=== PATIENT | female | born 1940 | race Caucasian/White ===

== ENCOUNTER 2017-06-16 09:15 | Outpatient (CLI) | payer MEDICARE ==
--- NOTE | 2017-06-18 09:38 | Mammography Report ---
DATE OF SERVICE: 06/16/2017 DIGITAL SCREENING MAMMOGRAM: 06/16/2017 CLINICAL INDICATION: A 76-year-old with a family history of breast cancer, for screening. COMPARISON: 07/2015, 07/2014, 06/2013, 05/2013, 02/2012, 11/2010, 10/2009. TECHNIQUE: Routine CC and MLO projections were obtained of the breasts. FINDINGS: The breasts demonstrate scattered fibroglandular densities bilaterally. Punctate, typically benign calcifications are present. No suspicious masses, clustered microcalcifications, or regions of architectural distortion are identified. IMPRESSION: BENIGN FINDINGS. RECOMMENDATION: ROUTINE ANNUAL SCREENING UNLESS OTHERWISE CLINICALLY INDICATED. BIRADS CATEGORY 2-BENIGN FINDINGS. STANDARD QUALIFYING STATEMENTS: 1. This examination was reviewed with the aid of Computer-Aided Detection (CAD). 2. A negative or benign imaging report should not delay biopsy if clinically suspicious findings are present. Consider surgical consultation if warranted. More than 5% of cancers are not identified by imaging. 3. Dense breasts may obscure an underlying neoplasm. TD: 06/18/2017 10:37
== END 2017-06-16 09:16 | disposition home or self-care (01) ==
LOC: DI 09:15
PROVIDERS: ATTEND Family Medicine
DX: Z12.31 Encounter for screening mammogram for malignant neoplasm of breast (principal); Z80.3 Family history of malignant neoplasm of breast
CPT/HCPCS: 77067

== ENCOUNTER 2017-06-16 09:15 | Outpatient (CLI) | payer MEDICARE ==
--- NOTE | 2017-06-20 15:20 | DEXA Report ---
DEXA SCAN: 06/16/2017 CLINICAL INDICATION: Osteopenia. TECHNIQUE: Dual energy x-ray absorptiometry (DXA) was performed on a [employer] system. Regions measured are the AP spine, femoral neck, and, if needed, forearm. COMPARISON: None. In accordance with the International Society for Clinical Densitometry (ISCD) guidelines, data from previous exams may be reanalyzed using current recommendations and techniques. This is done to allow a more accurate basis for comparison with the current study. FINDINGS The data for the lumbar spine is as follows: REGION BMD (g/cm/cm) T-SCORE Z-SCORE L1 1.252 1.0 2.3 L2 1.264 0.5 1.8 L3 1.399 1.7 2.9 L4 1.391 1.6 2.9 L1-L4 1.338 1.3 2.6 NOTE: All evaluable vertebrae are used for classification. The data for the hip is as follows: REGION BMD (g/cm/cm) T-SCORE Z-SCORE Neck 0.821 -1.6 0.0 TOTAL 0.928 -0.6 0.8 NOTE: The femoral neck or total proximal femur, whichever is lowest, is used for classification. IMPRESSION THE WHO CLASSIFICATION BASED ON THE INTERNATIONAL REFERENCE STANDARD IS OSTEOPENIA (REFERENCE LEFT FEMORAL NECK). THE FRACTURE RISK IS INCREASED. RECOMMENDATION: Patients with diagnosis of osteoporosis or osteopenia should have regular bone mineral density assessment. For those eligible for Medicare, routine testing is allowed once every 2 years. Testing frequency can be increased for patients who have rapidly progressing disease or for those who are receiving medical therapy to restore bone mass. COMMENT: World Health Organization (WHO) definitions for osteoporosis and osteopenia: NORMAL BMD: T-score at 1.0 or higher, fracture risk is low. OSTEOPENIA BMD: T-score between 1.0 and -2.5, fracture risk is increased. OSTEOPOROSIS BMD: T-score at 2.5 or lower, fracture risk high. National Osteoporosis Foundation recommends: 1. Obtain adequate dietary calcium (at least 1200 mg per day) and vitamin D (400 -800 international units per day). 2. Participate, as appropriate, in regular weightbearing and muscle- strengthening exercise. 3. Avoid tobacco use and reduce alcohol and caffeine intake. 4. For more detailed information see the website at www.NOF.org. TD: 06/16/2017 11:51 MTDD
== END 2017-06-16 09:16 | disposition home or self-care (01) ==
LOC: DI 09:15
PROVIDERS: ATTEND Family Medicine
DX: M85.88 Other specified disorders of bone density and structure, other site (principal)
CPT/HCPCS: 77080

== ENCOUNTER 2017-09-07 08:00 | Outpatient (CLI) | payer MEDICARE | END 2017-09-07 23:59 | disposition home or self-care (01) | LOC: LAB.R 08:00 | PROVIDERS: ATTEND Family Medicine | DX: R19.7 Diarrhea, unspecified (principal) | CPT/HCPCS: 81599; 87045; 87046; 87177; 87209; 87329 ==

== ENCOUNTER 2017-09-08 08:00 | Outpatient (CLI) | payer MEDICARE | END 2017-09-08 08:01 | disposition home or self-care (01) | LOC: LAB.R 08:00 | PROVIDERS: ATTEND Family Medicine | DX: R19.7 Diarrhea, unspecified (principal) | CPT/HCPCS: 81599; 83630; 87045; 87046; 87177; 87209; 87493 ==

== ENCOUNTER 2017-09-24 12:20 | Outpatient (CLI) | payer MEDICARE | END 2017-09-24 12:21 | disposition home or self-care (01) | LOC: LAB.WCP 12:20 | PROVIDERS: ATTEND Family Medicine | DX: R19.7 Diarrhea, unspecified (principal) | CPT/HCPCS: 87045; 87046; 87493 ==

== ENCOUNTER 2018-09-05 14:14 | Outpatient (CLI) | payer MEDICARE ==
--- NOTE | 2018-09-06 17:31 | Mammography Report ---
Reason: SCREENING MAMMO Procedure Date: 09/05/2018 Accession Number: [id number] / [id number] Procedure: JOSE - Screening Mammo w/Xavi CPT Code: FULL RESULT: EXAM: Screening Mammo w/Xavi DATE: 09/05/2018 2:56 PM CLINICAL HISTORY: Routine screening. No reported personal history of breast cancer. Family history breast cancer in mother at age 83 and grandmother age 75. TECHNIQUE: (B) - Bilateral Bilateral CC and MLO views were obtained. COMPARISON: 06/16/2017 through 05/27/2013 PARENCHYMAL PATTERN: (A) - The breasts demonstrate scattered fibroglandular densities bilaterally. FINDINGS: Bilateral breasts: There are no suspicious masses, calcifications, or areas of distortion. IMPRESSION: Negative examination. BI-RADS category1 RECOMMENDATION: (ANNUAL) - Recommend routine annual screening mammography. BI-RADS CATEGORY: (1) - Negative STANDARD QUALIFYING STATEMENTS: 1. This examination was not reviewed with the aid of Computer-Aided Detection (CAD). 2. A negative or benign imaging report should not preclude biopsy if clinically suspicious findings are present. 3. Dense breasts may obscure an underlying neoplasm. 4. This examination was reviewed with the aid of 3D breast imaging (tomosynthesis).
== END 2018-09-05 14:15 | disposition home or self-care (01) ==
LOC: DI 14:14
DX: Z12.31 Encounter for screening mammogram for malignant neoplasm of breast (principal); Z80.3 Family history of malignant neoplasm of breast
CPT/HCPCS: 77063; 77067

== ENCOUNTER 2020-08-07 08:16 | Outpatient (CLI) | payer MEDICARE ==
--- NOTE | 2020-08-12 09:01 | DEXA Report ---
PROCEDURE: Dexa Spine and/or Hip INDICATIONS: OSTEOPENIA TECHNIQUE: Dual energy x-ray absorptiometry (DXA) was performed on a [employer] System. Regions measur ed are the AP Spine, femoral neck, and if needed forearm. COMPARISON: None. FINDINGS: Lumbar Spine: Bone Mineral Density 1.260 g/cm/cm,T score 0.8, Left Femoral Neck: Bone Mineral Density 0.896 g/cm/cm, T score -0.9, (T score greater or equal to -1.0: NORMAL) (T score from -1.1 to -2.4: OSTEOPENIA) (T score less than or equal to -2.5 to: OSTEOPOROSIS) Impression: Normal. Patients with diagnosis of osteoporosis or osteopenia should have regular bone mineral density assess ment. For those eligible for Medicare, routine testing is allowed once every 2 years. Testing frequ ency can be increased for patients who have rapidly progressing disease or for those who are receivin g medical therapy to restore bone mass. Reviewed by: Floyd Garcia MD on 08/12/2020 9:00 AM PST Approved by: Floyd Garcia MD on 08/12/2020 9:00 AM PST Station ID: [id number]
== END 2020-08-07 08:17 | disposition home or self-care (01) ==
LOC: DI 08:16
PROVIDERS: ATTEND Nurse Practitioner
DX: M85.80 Other specified disorders of bone density and structure, unspecified site (principal)

== ENCOUNTER 2020-10-16 10:14 | Outpatient (CLI) | payer MEDICARE ==
--- NOTE | 2020-10-17 14:10 | Mammography Report ---
BILATERAL DIGITAL SCREENING MAMMOGRAM 3D/2D: 10/16/2020 CLINICAL: Family history of breast cancer. Routine screening. Comparison is made to exams dated: 09/05/2018 mammogram, 06/26/2017 mammogram, 07/26/2015 mammogram, 07/08 mammogram, 06/08/2013 mammogram, and 06/08/2013 ultrasound - [facility]. The ti ssue of both breasts is predominantly fatty. No significant masses, calcifications, or other findings are seen in either breast. There has been no significant interval change. IMPRESSION: NEGATIVE There is no mammographic evidence of malignancy. A 1 year screening mammogram is recommended. This exam was interpreted at Station ID: [id number]. NOTE: For mammograms, a report in lay terms will be sent to the patient. Approximately 15% of breast malignancies will not be visualized mammographically. In the management of a palpable breast mass, a negative mammogram must not discourage biopsy of a clinically suspicious lesion. Electronically Signed By: Maged Barron acr/penrad:10/16/2020 11:47:17 ACR BI-RADS Category 1: Negative 3341F PARENCHYMAL PATTERN: (F) - The breast(s) demonstrate(s) diffuse fatty replacement. BI-RADS CATEGORY: (1) - 1 RECOMMENDATION: (ANNUAL) - Recommend routine annual screening mammography. [id number] 1 year screening LATERALITY: (B)
== END 2020-10-16 10:15 | disposition home or self-care (01) ==
LOC: DI.N 10:14
PROVIDERS: ATTEND Nurse Practitioner
DX: Z12.31 Encounter for screening mammogram for malignant neoplasm of breast (principal); Z80.3 Family history of malignant neoplasm of breast

== ENCOUNTER 2021-12-03 08:17 | Outpatient (CLI) | payer MEDICARE ==
--- NOTE | 2021-12-04 08:59 | Mammography Report ---
BILATERAL DIGITAL SCREENING MAMMOGRAM 3D/2D: 12/03/2021 CLINICAL: Family history of breast cancer. Routine screening. Comparison is made to exams dated: 10/16/2020 mammogram, 09/05/2018 mammogram, 06/26/2017 mammogram, 07/08 mammogram, 07/20/2014 mammogram, and 06/08/2013 mammogram - [facility]. The ti ssue of both breasts is predominantly fatty. No significant masses, calcifications, or other findings are seen in either breast. There has been no significant interval change. IMPRESSION: NEGATIVE There is no mammographic evidence of malignancy. A 1 year screening mammogram is recommended. Based on the Tyrer Cuzick model (a risk assessment model) the patients lifetime risk is 3.8% and her 10 year risk is 0.0%. According to the ACR, ACS, and NCCN guidelines, an annual breast MRI exam gokul g with mammogram is recommended if the patients lifetime risk is 20% or greater. This exam was interpreted at Station ID: [id number]. NOTE: For mammograms, a report in lay terms will be sent to the patient. Approximately 15% of breast malignancies will not be visualized mammographically. In the management of a palpable breast mass, a negative mammogram must not discourage biopsy of a clinically suspicious lesion. Electronically Signed By: Maged Barron acr/penrad:12/03/2021 12:28:56 ACR BI-RADS Category 1: Negative 3341F PARENCHYMAL PATTERN: (F) - The breast(s) demonstrate(s) diffuse fatty replacement. BI-RADS CATEGORY: (1) - 1 RECOMMENDATION: (ANNUAL) - Recommend routine annual screening mammography. [id number] 1 year screening LATERALITY: (B)
== END 2021-12-03 08:18 | disposition home or self-care (01) ==
LOC: DI.N 08:17
PROVIDERS: ATTEND Physician Assistant
DX: Z12.31 Encounter for screening mammogram for malignant neoplasm of breast (principal); Z80.3 Family history of malignant neoplasm of breast

== ENCOUNTER 2022-08-21 11:22 | Outpatient (CLI) | payer MEDICARE | END 2022-08-21 11:23 | disposition critical access hospital (66) | LOC: EMS 11:22 | DX: R55 Syncope and collapse (principal); R19.7 Diarrhea, unspecified; R42 Dizziness and giddiness; S09.90XA Unspecified injury of head, initial encounter; R04.0 Epistaxis; W18.39XA Other fall on same level, initial encounter; Y92.002 Bathroom of unspecified non-institutional (private) residence as the place of occurrence of the external cause; U07.1 COVID-19 | CPT/HCPCS: A0425; A0427 ==

== ENCOUNTER 2022-08-21 11:50 | Emergency (ER) | payer MEDICARE ==
--- NOTE | 2022-08-21 11:48 | ED Physician Documentation ---
History of Present Illness - Stated complaint Stated Complaint: SYNCOPE/COVID - Additonal information Additional information: 82-year-old female presents to the emergency department via EMS for evaluation of a syncopal episode. Reportedly diagnosed with COVID infection on 17 August. Has been on Paxlovid. Generally feeling unwell over the last several days with decreased p.o. and liquid intake. This morning she got out of bed felt mildly dizzy. Was ambulating to the bathroom to take a shower when she fainted. She did strike her head on the counter. Per patient she lost consciousness for less than a few seconds. Her was immediately at the bedside. No symptoms suggestive of seizure on scene. EMS arrived on scene found her to be normoglycemic. She did have some mild orthostasis from laying to standing with blood pressures. She is not anticoagulated. Past medical history most significant for hypertension and hypothyroid as well as hyperlipidemia. Patient denies experiencing chest pain or shortness of air previous to fainting. EMS administered 400 mils of crystalloid. Review of Systems Constitutional: reports: Other (Bruise above left eyebrow). denies: Fever, Chills Eyes: reports: Reviewed and negative Cardiac: reports: Reviewed and negative Respiratory: reports: Cough GI: reports: Reviewed and negative : reports: Reviewed and negative Skin: reports: Reviewed and negative Musculoskeletal: denies: Neck pain Neurologic: reports: Generalized weakness, Syncope, Head injury. denies: Seizure, Confused, Headache PD PAST MEDICAL HISTORY - Allergies Allergies/Adverse Reactions: Allergies Allergy/AdvReac Type Severity Reaction Status Date / Time No Known Drug Allergies Allergy Verified 08/21/22 12:01 PD ED PE NORMAL - General General: Alert and oriented X 3, No acute distress, Well developed/nourished - HEENT HEENT: Ears normal, Moist mucous membranes, Pharynx benign, Other (Negative for hemotympanums albert sign or raccoon eyes). No: Atraumatic (Superficial bruise above the right eyebrow) - Neck Neck: Supple, no meningeal sign, No adenopathy, C-Spine cleared by NEXUS criteria - Cardiac Cardiac: RRR, No murmur - Respiratory Respiratory: No respiratory distress, Clear bilaterally - Abdomen Abdomen: Normal bowel sounds, Soft - Back Back: No CVA TTP, No spinal TTP (No tenderness elicited with palpation of the cervical thoracic or lower lumbar spine. 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, No motor deficit, No sensory deficit, Normal speech, Other (NIHSS of 0) Eye Opening: Spontaneous Motor: Obeys Commands Verbal: Oriented GCS Score: 15 Results - Vitals Vitals: Vital Signs - 24 hr 08/21/22 08/21/22 08/21/22 11:52 11:55 12:42 Temperature 36.9 C Heart Rate 69 73 Heart Rate [ 74 Sitting] Heart Rate [ 76 Standing] Heart Rate [ 64 Supine] Respiratory 16 21 Rate Blood Pressure 155/63 H 147/71 H Blood Pressure 128/66 [Sitting] Blood Pressure 147/71 H [Standing] Blood Pressure 152/57 H [Supine] O2 Saturation 96 99 Oxygen O2 Source Room air - EKG (time done) 1152 EKG releavant findings:: EKG personally interpreted by author of this note. Relevant findings are: Rate: Rate (enter#) (72) Rhythm: NSR Jordan: Normal Intervals: Normal MA. No: Prolonged QT QRS: Normal Ischemia: Normal ST segments Compare to prior EKG: Old EKG unavailable Computer interpretation: Agree with computer - Labs Labs: Laboratory Tests 08/21/22 08/21/22 08/21/22 12:00 12:00 12:00 WBC 7.4 RBC 5.30 Hgb 14.9 Hct 46.9 MCV 88.5 MCH 28.1 MCHC 31.8 L RDW 12.6 Plt Count 233 MPV 9.7 Neut # (Auto) 5.5 Lymph # (Auto) 1.3 L Roane # (Auto) 0.6 Eos # (Auto) 0.1 Baso # (Auto) 0.0 Absolute Nucleated RBC 0.00 Nucleated RBC % 0.0 Sodium 134 L Potassium 2.8 L Chloride 93 L Carbon Dioxide 25 Anion Gap 16.0 H BUN 26 H Creatinine 1.3 H Estimated GFR (MDRD) 39 L Glucose 131 H Calcium 9.2 Total Bilirubin 1.1 H AST 23 ALT 21 Alkaline Phosphatase 42 Total Protein 6.7 Albumin 4.0 Globulin 2.7 Albumin/Globulin Ratio 1.5 Lipase 38 TSH 1.01 Free T4 1.98 H - Rads (name of study) cxr Relevant Findings:: EMP independent interpretation of test (No acute cardiopulmonary process) CT head Relevant Findings:: Final report received (Mild right maxillary sinusitis. No evidence of acute intracranial process) PD Medical Decision Making - ED course Complexity details: reviewed results, re-evaluated patient, considered differential, d/w patient ED course: 82-year-old female presents to the emergency department for evaluation of syncope. She tested positive for COVID over the weekend and began taking Paxlovid on Wednesday. However she has been feeling generally unwell. Paxlovid has change the taste of food and liquids and she has had very little to eat or drink. This morning she was walking to the bathroom when she fainted and struck her head on the counter. There is a very brief loss of consciousness. Patient denies any chest pain or shortness of air. EMS was summoned to the scene. She was normoglycemic. She did have some mild orthostasis however. On presentation to the emergency department she was alert and well-appearing. No worrisome vital sign abnormalities were noted. No hypotension or tachycardia. Her EKG is interpreted by myself showed no acute ischemic changes. She was denying chest pain or shortness of air. No hypoxia. Chest x-ray is interpreted by myself also showed no acute cardiopulmonary process. Given the fainting episode and advanced age CT the head was completed that did not show any acute intracranial injuries. A CBC was completed and showed no anemia. Her electrolytes as interpreted by myself do show some mild dehydration and hypokalemia. Here in the emergency department she was repleted with 2 L of crystalloid as well as 40 mill equivalents of potassium and on reevaluation no longer has orthostasis. She has been able to ambulate easily in the emergency department as well as tolerate sips of apple juice and crackers. At this time she is stable for discharge home. I did discuss with her the findings of mildly altered kidney function and have advised her to have follow-up with her primary care doctor to have her labs rechecked next week at this time I do not feel that she would benefit from admission to the hospital for further evaluation or management as clinically her history is not consistent with ACS, pulmonary embolism or other acute etiologies. Departure - Departure Disposition: 01 Home, Self Care Clinical Impression: Syncope and collapse, Dehydration, Acute kidney injury, COVID-19 virus infection Condition: Serious Record reviewed to determine appropriate education?: Yes Instructions: ED Dehydration Comments: Sharri to came to the emergency department today because for the last several days you have been feeling unwell with COVID-19. You have had very little to eat or drink and this morning when walking into the bathroom you fainted. Here in the emergency department the CT scan did not show any bruising or bleeding within your brain. Your EKG was normal for age. We did obtain a CBC that was also normal and showed no worrisome anemia. Your electrolytes however show that you are mildly dehydrated. Your BUN was 26 and your creatinine was 1.3. This is just higher than we would expect for your age. Here in the emergency department we did give you 2 L of IV fluids. I suspect that the cause of your fainting was due to dehydration and mild orthostasis. You are feeling better and you are stable to go home. Is important you stay well-hydrated over the next few days. Please take frequent sips of water or broth. The Paxlovid often causes a metallic taste in your mouth and it will get better within about 3 to 4 days after stopping it. Please return immediately to the ER if you develop any worsening symptoms, have any more fainting episodes or have chest pain or shortness of air as always discussed this ED visit with your primary care provider
[~2022-08-21 11:50] MED LIST: SODIUM CHLORIDE 0.9% 1,000 ML IV STA
[2022-08-21 12:08] LABS: BASOPHILS % (AUTO) 0.5 %; EOSINOPHILS # (AUTO) 0.1 10^3/uL (0.0-0.7); EOSINOPHILS % (AUTO) 0.8 %; HCT - HEMATOCRIT 46.9 % (37.0-47.0); HGB - HEMOGLOBIN 14.9 g/dL (12.0-16.0); LYMPHOCYTES # (AUTO) 1.3 10^3/uL (1.5-3.5); LYMPHOCYTES % (AUTO) 16.8 %; MEAN CORPUSCULAR HEMOGLOBIN 28.1 pg (27.0-31.0); MEAN CORPUSCULAR HGB CONC 31.8 g/dL (32.0-36.0); MEAN CORPUSCULAR VOLUME 88.5 fL (81.0-99.0); MEAN PLATELET VOLUME 9.7 fL (7.9-10.8); MONOCYTES # (AUTO) 0.6 10^3/uL (0.0-1.0); MONOCYTES % (AUTO) 8.2 %; NEUTROPHILS # (AUTO) 5.5 10^3/uL (1.5-6.6); NEUTROPHILS % (AUTO) 73.4 %; PLT - PLATELET COUNT 233 10^3/uL (130-450); RED CELL DISTRIBUTION WIDTH 12.6 % (12.0-15.0); WHITE BLOOD COUNT 7.4 x10^3/uL (4.8-10.8)
--- NOTE | 2022-08-21 12:23 | XRAY Report ---
PROCEDURE: Chest 1 View X-Ray INDICATIONS: Chest Pain TECHNIQUE: One view of the chest was acquired. COMPARISON: 05/25/2016. FINDINGS: Surgical changes and devices: None. Lungs and pleura: No pleural effusions or pneumothorax. Lungs are clear. Mediastinum: Mediastinal contours appear normal. Heart size is normal. Bones and chest wall: No suspicious bony lesions. Overlying soft tissues appear unremarkable. IMPRESSION: No evidence acute pulmonary process. Reviewed by: Stanley Retana MD on 08/21/2022 12:21 PM PDT Approved by: Stanley Retana MD on 08/21/2022 12:21 PM PDT Station ID: [id number]
[2022-08-21 12:29] LABS: ALBUMIN/GLOBULIN RATIO 1.5 (1.0-2.2); BILIRUBIN,TOTAL 1.1 mg/dL (0.2-1.0); CALCIUM 9.2 mg/dL (8.5-10.3); CREATININE 1.3 mg/dL (0.4-1.0); POTASSIUM 2.8 mmol/L (3.5-5.0); TOTAL PROTEIN 6.7 g/dL (6.7-8.2)
[2022-08-21 12:37] LABS: THYROID STIMULATING HORMONE 1.01 uIU/mL (0.34-5.60)
[2022-08-21 12:39] LABS: FREE T4 (FREE THYROXINE) 1.98 ng/dL (0.58-1.64)
[2022-08-21] MEDS ORDERED: POTASSIUM CHLORIDE 20 MEQ/15 ML UDC PO STA (12:47)
[2022-08-21] MEDS ORDERED: SODIUM CHLORIDE 0.9% 1,000 ML IV STA (12:48)
--- NOTE | 2022-08-21 13:42 | CT Report ---
PROCEDURE: HEAD WO INDICATIONS: glf; syncope TECHNIQUE: Noncontrast 4.5 mm thick angled axial sections acquired from the foramen magnum to the vertex. For r adiation dose reduction, the following was used: automated exposure control, adjustment of mA and/or kV according to patient size. COMPARISON: None. FINDINGS: Image quality: Excellent. CSF spaces: Basal cisterns are patent. No extra-axial fluid collections. Ventricles are normal in size and shape. Brain: No midline shift. No intracranial masses or hemorrhage. Barrera-white matter interface is norm al. Age-related volume loss and mild age-appropriate small vessel ischemic change. Skull and face: Calvarium and visualized facial bones are intact, without suspicious lesions. Sinuses: Small air fluid level, right maxillary sinus. IMPRESSION: 1. Mild right maxillary sinusitis. 2. No evidence acute intracranial process. Reviewed by: Stanley Retana MD on 08/21/2022 1:41 PM PDT Approved by: Stanley Retana MD on 08/21/2022 1:41 PM PDT Station ID: [id number]
[2022-08-21 14:32] VITALS: BP 165/60
== END 2022-08-21 14:38 | disposition home or self-care (01) ==
LOC: ED 11:50
DX: R55 Syncope and collapse (principal); E86.0 Dehydration; E87.6 Hypokalemia; N17.9 Acute kidney failure, unspecified; U07.1 COVID-19
CPT/HCPCS: 36415; 70450; 71045; 80053; 83690; 84439; 84443; 85025; 93005; 96360; 99284; A9270

== ENCOUNTER 2022-11-05 13:23 | Outpatient (CLI) | payer MEDICARE ==
--- NOTE | 2022-11-06 09:48 | Mammography Report ---
BILATERAL DIGITAL SCREENING MAMMOGRAM 3D/2D: 11/05/2022 CLINICAL: Routine screening. Comparison is made to exams dated: 12/03/2021 mammogram, 10/16/2020 mammogram, 09/05/2018 mammogram, 06/08 mammogram, 07/26/2015 mammogram, and 07/20/2014 mammogram - [facility]. There are scattered areas of fibroglandular density in both breasts (category b / 25%-50% glandular t issue). No significant masses, calcifications, or other findings are seen in either breast. There has been no significant interval change. IMPRESSION: NEGATIVE There is no mammographic evidence of malignancy. A 1 year screening mammogram is recommended. Based on the Tyrer Cuzick model (a risk assessment model) the patients lifetime risk is 4.9% and her 10 year risk is 0.0%. According to the ACR, ACS, and NCCN guidelines, an annual breast MRI exam gokul g with mammogram is recommended if the patients lifetime risk is 20% or greater. This exam was interpreted at Station ID: [id number]. NOTE: For mammograms, a report in lay terms will be sent to the patient. Approximately 15% of breast malignancies will not be visualized mammographically. In the management of a palpable breast mass, a negative mammogram must not discourage biopsy of a clinically suspicious lesion. Electronically Signed By: Refugio knowles/jess:11/06/2022 07:04:26 letter sent: No_Letter ACR BI-RADS Category 1: Negative 3341F PARENCHYMAL PATTERN: (A) - The breast(s) demonstrate(s) scattered fibroglandular densities. BI-RADS CATEGORY: (1) - 1 Mammogram [id number] 1 year screening LATERALITY: (B)
== END 2022-11-05 13:24 | disposition home or self-care (01) ==
LOC: DI 13:23
DX: Z12.31 Encounter for screening mammogram for malignant neoplasm of breast (principal)

== ENCOUNTER 2022-11-05 13:24 | Outpatient (CLI) | payer MEDICARE | END 2022-11-05 13:25 | disposition home or self-care (01) | LOC: DI 13:24 | PROVIDERS: ATTEND Physician Assistant | DX: Z53.9 Procedure and treatment not carried out, unspecified reason (principal) ==

== ENCOUNTER 2023-12-21 09:10 | Outpatient (CLI) | payer MEDICARE ==
[2023-12-21 12:58] LABS: BASOPHILS # (AUTO) 0.1 10^3/uL (0.0-0.1); BASOPHILS % (AUTO) 1.4 %; EOSINOPHILS # (AUTO) 0.2 10^3/uL (0.0-0.7); EOSINOPHILS % (AUTO) 2.4 %; HCT - HEMATOCRIT 42.2 % (37.0-47.0); HGB - HEMOGLOBIN 13.5 g/dL (12.0-16.0); LYMPHOCYTES # (AUTO) 1.7 10^3/uL (1.5-3.5); LYMPHOCYTES % (AUTO) 21.5 %; MEAN CORPUSCULAR HEMOGLOBIN 28.7 pg (27.0-31.0); MEAN CORPUSCULAR VOLUME 89.6 fL (81.0-99.0); MEAN PLATELET VOLUME 10.8 fL (7.9-10.8); MONOCYTES # (AUTO) 0.7 10^3/uL (0.0-1.0); MONOCYTES % (AUTO) 9.1 %; NEUTROPHILS # (AUTO) 5.1 10^3/uL (1.5-6.6); NEUTROPHILS % (AUTO) 65.5 %; PLT - PLATELET COUNT 267 10^3/uL (130-450); RED BLOOD COUNT 4.71 10^6/uL (4.20-5.40); RED CELL DISTRIBUTION WIDTH 13.3 % (12.0-15.0); WHITE BLOOD COUNT 7.8 x10^3/uL (4.8-10.8)
[2023-12-21 13:25] LABS: ALBUMIN 4.2 g/dL (3.2-5.5); ALBUMIN/GLOBULIN RATIO 1.8 (1.0-2.2); ALKALINE PHOSPHATASE 37 IU/L (42-121); ALT ALANINE AMINOTRANSFERASE 13 IU/L (10-60); AST ASPARTATE AMINOTRANSFERASE 16 IU/L (10-42); BILIRUBIN,TOTAL 1.2 mg/dL (0.2-1.0); BUN - BLOOD UREA NITROGEN 21 mg/dL (6-20); CALCIUM 10.1 mg/dL (8.5-10.3); CARBON DIOXIDE - CO2 31 mmol/L (21-32); CHLORIDE 97 mmol/L (101-111); CHOL/HDL RATIO 2.3 (<4.4); CHOLESTEROL 160 mg/dL; GFR - MDRD 53 (>89); GLUCOSE 103 mg/dL (74-104); HDL CHOLESTEROL 71 mg/dL; LDL CHOLESTEROL,CALCULATED 70 mg/dL; POTASSIUM 3.4 mmol/L (3.5-4.5); SODIUM 134 mmol/L (135-145); TOTAL PROTEIN 6.6 g/dL (6.4-8.9); TRIGLYCERIDES 96 mg/dL; VLDL CHOLESTEROL 19 mg/dL
[2023-12-21 13:38] LABS: THYROID STIMULATING HORMONE 1.11 uIU/mL (0.34-5.60)
== END 2023-12-21 09:11 | disposition home or self-care (01) ==
LOC: LAB.N 09:10
PROVIDERS: ATTEND Physician Assistant
DX: I10 Essential (primary) hypertension (principal); E78.5 Hyperlipidemia, unspecified; E03.9 Hypothyroidism, unspecified
CPT/HCPCS: 36415; 80053; 80061; 83721; 84443; 85025